=== PATIENT | male | born 1950 | race Caucasian/White ===

== ENCOUNTER 2017-06-19 09:35 | Emergency (ER) | payer OTHER ==
[~2017-06-19] VITALS: Ht 185.4 cm; Wt 90.7 kg
== END 2017-06-19 10:27 | disposition home or self-care (01) ==
LOC: CED 09:35
DX: S61.214A Laceration without foreign body of right ring finger without damage to nail, initial encounter (principal); W23.0XXA Caught, crushed, jammed, or pinched between moving objects, initial encounter; E10.9 Type 1 diabetes mellitus without complications; Z23 Encounter for immunization
CPT/HCPCS: 90471; 90715; 99283